=== PATIENT | female | born 1985 | race Caucasian/White ===

== ENCOUNTER 2022-12-06 19:49 | Inpatient (IN) | payer OTHER ==
[2022-12-06 20:22] VITALS: BMI 23.3
[2022-12-06] MEDS ORDERED: methaDONE HCL 10 MG TABLET (FOR DETOX USE ONLY) PO ONE (20:42)
[2022-12-06] MEDS ORDERED: NALOXONE HCL 0.4 MG/ML VIAL IM PRN (20:42)
[2022-12-06] MEDS ORDERED: BENZOCAINE/MENTHOL (CHLORASEPTIC ) LOZENGE MM PRN (20:42)
[2022-12-06] MEDS ORDERED: IBUPROFEN 400 MG TABLET (FP) PO PRN (20:42)
[2022-12-06] MEDS ORDERED: LOPERAMIDE HCL 2 MG CAPSULE PO PRN (20:42)
[2022-12-06] MEDS ORDERED: MAGNESIUM HYDROX 2400MG/30ML ORAL SUSPENSION 30 ML CUP PO PRN (20:42)
[2022-12-06] MEDS ORDERED: BENZONATATE 200 MG CAPSULE PO PRN (20:42)
[2022-12-06] MEDS ORDERED: guaiFENesin 600 MG TABLET.ER (FP) PO PRN (20:42)
[2022-12-06] MEDS ORDERED: POLYETHYLENE GLYCOL (HEALTHYLAX) 3350 17 GM PACKET PO PRN (20:42)
[2022-12-06] MEDS ORDERED: MAG HYDROX/AL HYDROX/SIMETH 30 ML UNIT-DOSE CUP PO PRN (20:42)
[2022-12-06] MEDS ORDERED: ACETAMINOPHEN 325 MG TABLET (FP) PO PRN (20:42)
[2022-12-06] MEDS ORDERED: BISMUTH SUBSALICYLATE 524 MG/30 ML PO PRN (20:42)
[2022-12-06] MEDS ORDERED: hydrOXYzine PAMOATE 25 MG CAPSULE (FP) PO PRN (20:42)
[2022-12-06] MEDS ORDERED: IBUPROFEN 600 MG TABLET (FP) PO PRN (20:42)
[2022-12-06] MEDS ORDERED: DICYCLOMINE HCL 10 MG CAPSULE PO PRN (20:42)
[2022-12-06] MEDS ORDERED: ONDANSETRON *ODT* 4 MG TABLET SL PRN (20:42)
[2022-12-06] MEDS ORDERED: NALOXONE HCL (KLOXXADO) 8 MG SPRAY NS PRN (20:42)
[2022-12-06] MEDS ORDERED: cloNIDine HCL 0.1 MG TABLET PO PRN (20:42)
[2022-12-06] MEDS ORDERED: methaDONE HCL 10 MG TABLET (FOR DETOX USE ONLY) ONE (21:27)
[2022-12-06] MEDS: diazePAM 5 MG TABLET PO PRN (22:55)
[2022-12-06] MEDS: METHOCARBAMOL 500 MG TABLET PO PRN (22:55)
[2022-12-06] MEDS: MELATONIN 5 MG TABLETS PO SCH (22:55)
[2022-12-06] MEDS: THIAMINE HCL 100 MG TABLET (FP) PO SCH (22:56)
[2022-12-07] MEDS: NICOTINE 14 MG/24 HOURS TOPICAL PATCH TD SCH (10:29)
[2022-12-07] MEDS: PRENATAL VITAMINS W/ FOLIC ACID TABLET (FP) PO SCH (10:29)
[2022-12-07 12:12] LABS: HEMATOCRIT 40.2 % (32.4-45.2); HEMOGLOBIN 14.3 GM/dL (10.7-15.3); MCH 31.5 pg (25.7-33.7); MCHC 35.5 g/dl (32.0-36.0); MEAN CELL VOLUME 88.9 fl (80-96); MEAN PLT VOLUME 7.4 fl (7.5-11.1); PLATELET COUNT 329 10^3/uL (134-434); POTASSIUM 3.7 mmol/L (3.5-5.1); RBC 4.53 M/mm3 (3.60-5.2); RDW 13.7 % (11.6-15.6); WHITE BLOOD COUNT 6.8 K/mm3 (4.0-10.0)
[2022-12-07 12:18] LABS: CALCIUM 9.1 mg/dL (8.5-10.1)
[2022-12-07 12:19] LABS: ALBUMIN 3.8 g/dl (3.4-5.0)
[2022-12-07 12:20] LABS: BLOOD UREA NITROGEN 17.8 mg/dL (7-18)
[2022-12-07 12:21] LABS: CREATININE 0.7 mg/dL (0.55-1.3)
[2022-12-07 12:23] LABS: TOT PROT 7.3 g/dl (6.4-8.2)
[2022-12-07 12:24] LABS: BILIRUBIN,TOTAL 0.8 mg/dL (0.2-1)
[2022-12-07] MEDS: diazePAM 5 MG TABLET PO PRN ×2 (12:37→19:52)
[2022-12-07] MEDS: THIAMINE HCL 100 MG TABLET (FP) PO SCH (22:30)
[2022-12-07] MEDS: METHOCARBAMOL 500 MG TABLET PO PRN (22:30)
[2022-12-07] MEDS: MELATONIN 5 MG TABLETS PO SCH (22:30)
[2022-12-08] MEDS: diazePAM 5 MG TABLET PO PRN ×4 (06:30→22:23)
[2022-12-08] MEDS ORDERED: methaDONE HCL 10 MG TABLET (FOR DETOX USE ONLY) PO ONE (10:00)
[2022-12-08] MEDS: NICOTINE 14 MG/24 HOURS TOPICAL PATCH TD SCH (10:10)
[2022-12-08] MEDS: PRENATAL VITAMINS W/ FOLIC ACID TABLET (FP) PO SCH (10:11)
[2022-12-08] MEDS: NICOTINE POLACRILEX 2 MG GUM BUC PRN (18:15)
[2022-12-08] MEDS: MELATONIN 5 MG TABLETS PO SCH (22:23)
[2022-12-08] MEDS: THIAMINE HCL 100 MG TABLET (FP) PO SCH (22:23)
[2022-12-08] MEDS: METHOCARBAMOL 500 MG TABLET PO PRN (22:23)
[2022-12-09] MEDS: diazePAM 5 MG TABLET PO PRN ×2 (06:57→11:47)
[2022-12-09] MEDS: NICOTINE 14 MG/24 HOURS TOPICAL PATCH TD SCH (10:10)
[2022-12-09] MEDS: PRENATAL VITAMINS W/ FOLIC ACID TABLET (FP) PO SCH (10:11)
[2022-12-09] MEDS: NICOTINE POLACRILEX 2 MG GUM BUC PRN (12:08)
[2022-12-09] MEDS: lamoTRIgine 100 MG TABLET PO SCH (15:15)
[2022-12-09] MEDS: FLUoxetine HCL 20 MG CAPSULE PO SCH (15:15)
[2022-12-09] MEDS ORDERED: SUVOREXANT 10 MG TABLET PO PRN (22:00)
[2022-12-09] MEDS: SUVOREXANT 10 MG TABLET PO PRN (22:06)
[2022-12-09] MEDS: PRAZOSIN HCL 1 MG CAPSULE PO SCH (22:06)
[2022-12-09] MEDS: THIAMINE HCL 100 MG TABLET (FP) PO SCH (22:06)
[2022-12-09] MEDS: METHOCARBAMOL 500 MG TABLET PO PRN (22:07)
[2022-12-10] MEDS ORDERED: methaDONE HCL 10 MG TABLET (FOR DETOX USE ONLY) PO ONE (10:00)
[2022-12-10] MEDS: PRENATAL VITAMINS W/ FOLIC ACID TABLET (FP) PO SCH (10:23)
[2022-12-10] MEDS: FLUoxetine HCL 20 MG CAPSULE PO SCH (10:23)
[2022-12-10] MEDS: lamoTRIgine 100 MG TABLET PO SCH (10:24)
[2022-12-10] MEDS: NICOTINE 14 MG/24 HOURS TOPICAL PATCH TD SCH (10:24)
[2022-12-10] MEDS: SUVOREXANT 10 MG TABLET PO PRN (22:07)
[2022-12-10] MEDS: PRAZOSIN HCL 1 MG CAPSULE PO SCH (22:07)
[2022-12-10] MEDS: THIAMINE HCL 100 MG TABLET (FP) PO SCH (22:07)
[2022-12-11] MEDS: PRENATAL VITAMINS W/ FOLIC ACID TABLET (FP) PO SCH (09:10)
[2022-12-11] MEDS: NICOTINE 14 MG/24 HOURS TOPICAL PATCH TD SCH (09:10)
[2022-12-11] MEDS: lamoTRIgine 100 MG TABLET PO SCH (09:10)
[2022-12-11 09:29] VITALS: BP 99/66; PULSE 88; RESP 18; TEMP 97.8
[2022-12-11] MEDS: FLUoxetine HCL 20 MG CAPSULE PO SCH (10:10)
== END 2022-12-11 09:17 | disposition home or self-care (01) | DRG 773 ==
LOC: YASAS 19:49 → Y6N 21:06
PROVIDERS: ADMIT Allergy & Immunology; ATTEND Allergy & Immunology
PROC: HZ2ZZZZ Detoxification Services for Substance Abuse Treatment (ICD-10-PCS; principal; 2022-12-06)
DX: F11.23 Opioid dependence with withdrawal (principal); F12.20 Cannabis dependence, uncomplicated; F17.210 Nicotine dependence, cigarettes, uncomplicated; F19.282 Other psychoactive substance dependence with psychoactive substance-induced sleep disorder; F19.280 Other psychoactive substance dependence with psychoactive substance-induced anxiety disorder; F19.24 Other psychoactive substance dependence with psychoactive substance-induced mood disorder; F32.9 Major depressive disorder, single episode, unspecified; F41.9 Anxiety disorder, unspecified; F43.10 Post-traumatic stress disorder, unspecified; R56.1 Post traumatic seizures; Z87.820 Personal history of traumatic brain injury
CPT/HCPCS: 36415; 71046-TC-FY; 80053; 81025; 85027; 86780; 87635; 87811; 93005; 93010